=== PATIENT | male | born 1990 | race Two or more races ===

== ENCOUNTER 2016-11-27 20:52 | Emergency (ER) | payer MEDICAID ==
[~2016-11-27] VITALS: Ht 167.6 cm; Wt 102.1 kg
[2016-11-27 21:18] VITALS: BP 137/83
[2016-11-27] MEDS ORDERED: KETOROLAC TROMETH 60MG/2ML VIAL IM ONE (23:30)
[2016-11-28] MEDS ORDERED: KETOROLAC TROMETH 60MG/2ML VIAL IM ONE
== END 2016-11-28 03:37 | disposition home or self-care (01) ==
LOC: ER 21:06
DX: R07.81 Pleurodynia (principal); J45.909 Unspecified asthma, uncomplicated; M10.9 Gout, unspecified; V49.49XA Driver injured in collision with other motor vehicles in traffic accident, initial encounter; Y93.89 Activity, other specified; Y99.8 Other external cause status; Y92.410 Unspecified street and highway as the place of occurrence of the external cause
CPT/HCPCS: 71010; 72125; 72131; 96372; 99284; J1885

== ENCOUNTER 2019-11-09 07:39 | Emergency (ER) | payer SELFPAY ==
[~2019-11-09] VITALS: Ht 162.6 cm; Wt 122.5 kg
[2019-11-09 08:08] VITALS: BP 138/84
== END 2019-11-09 09:19 | disposition home or self-care (01) ==
LOC: ER 07:39
DX: J45.909 Unspecified asthma, uncomplicated (principal); M10.9 Gout, unspecified
CPT/HCPCS: 71045